=== PATIENT | female | born 1980 | race Caucasian/White ===

== ENCOUNTER 2023-01-13 16:49 | Emergency (ER) | payer OTHER ==
[2023-01-13 16:56] VITALS: BP 132/72; PULSE 76; RESP 18; TEMP 98.2; BMI 32.2
[2023-01-13] MEDS ORDERED: TETRACAINE 0.5% OPHTH SOLN 2 ML BOTTLE OU ONE (17:37)
[2023-01-13] MEDS ORDERED: TETRACAINE 0.5% OPHTH SOLN 2 ML BOTTLE ONE (17:37)
[2023-01-13] MEDS ORDERED: OFLOXACIN 0.3% OPHTHALMIC SOLUTION 5 ML BOTTLE OU ONE (18:15)
[2023-01-13] MEDS ORDERED: ERYTHROMYCIN 0.5% OPHTHALMIC OINTMENT 3.5 GM TUBE OU STA (18:27)
== END 2023-01-13 19:07 | disposition home or self-care (01) ==
LOC: FER 16:49
DX: S05.01XA Injury of conjunctiva and corneal abrasion without foreign body, right eye, initial encounter (principal); S05.02XA Injury of conjunctiva and corneal abrasion without foreign body, left eye, initial encounter; H16.003 Unspecified corneal ulcer, bilateral; T59.4X1A Toxic effect of chlorine gas, accidental (unintentional), initial encounter; Y04.8XXA Assault by other bodily force, initial encounter
CPT/HCPCS: 99283-25

== ENCOUNTER 2023-06-28 16:41 | Emergency (ER) | payer OTHER ==
[2023-06-28 16:55] VITALS: BP 136/94; PULSE 72; RESP 18; TEMP 97.8; BMI 34.5
[2023-06-28] MEDS ORDERED: ACETAMINOPHEN 325 MG TABLET (FP) PO ONE (17:06)
[2023-06-28] MEDS ORDERED: ONDANSETRON *ODT* 4 MG TABLET SL ONE (17:06)
[2023-06-28 17:08] LABS: HCG,QUALITATIVE URINE Negative
[2023-06-28] MEDS ORDERED: ONDANSETRON *ODT* 4 MG TABLET ONE (17:09)
[2023-06-28] MEDS ORDERED: ACETAMINOPHEN 325 MG TABLET (FP) ONE (17:09)
[2023-06-28] MEDS ORDERED: LIDOCAINE 5% TOPICAL PATCH TP ONE (18:18)
[2023-06-28] MEDS ORDERED: KETOROLAC TROMETHAMINE 30 MG/1 ML VIAL IM ONE (18:18)
[2023-06-28] MEDS ORDERED: KETOROLAC TROMETHAMINE 30 MG/1 ML VIAL ONE (18:19)
[2023-06-28] MEDS ORDERED: LIDOCAINE 5% TOPICAL PATCH ONE (18:19)
== END 2023-06-28 18:51 | disposition home or self-care (01) ==
LOC: FER 16:41
PROC: 3E0233Z Introduction of Anti-inflammatory into Muscle, Percutaneous Approach (ICD-10-PCS; principal; 2023-06-28)
DX: B34.9 Viral infection, unspecified (principal); R11.2 Nausea with vomiting, unspecified; R51.9 Headache, unspecified; M79.10 Myalgia, unspecified site; M54.50 Low back pain, unspecified; M54.2 Cervicalgia; M25.569 Pain in unspecified knee; M25.529 Pain in unspecified elbow; R68.83 Chills (without fever); Z20.822 Contact with and (suspected) exposure to COVID-19
CPT/HCPCS: 0241U-QW; 81003; 81015; 84703; 87086; 99284-25; Q0162

== ENCOUNTER 2023-09-06 20:38 | Emergency (ER) | payer OTHER ==
[2023-09-06 21:00] VITALS: PULSE 65; RESP 18; TEMP 97.8; BMI 28.3
[2023-09-07 00:43] VITALS: BP 159/103
== END 2023-09-07 00:52 | disposition home or self-care (01) ==
LOC: FER 20:38
DX: S40.011A Contusion of right shoulder, initial encounter (principal); S30.0XXA Contusion of lower back and pelvis, initial encounter; S20.211A Contusion of right front wall of thorax, initial encounter; M25.511 Pain in right shoulder; R07.89 Other chest pain; M54.50 Low back pain, unspecified; W07.XXXA Fall from chair, initial encounter
CPT/HCPCS: 71101-TC-RT-FY; 72100-TC-FY; 73030-TC-RT-FY; 99283-25